=== PATIENT | female | born 1955 | race Caucasian/White ===

== ENCOUNTER → 2018-08-13 | Outpatient (CLI) | payer OTHER ==
--- NOTE | 2018-08-18 08:41 | Pulmonary Function Test ---
DATE OF STUDY: Patient of Dr. [place] and Dr. Emmanuel Severe obstructive pulmonary disease. Forced vital capacity 2.17, 64% of predicted. FEV1 1.38, 52% of predicted. FEV1/FVC ratio 63%. FEF25/75 34% consistent with moderately severe to severe obstructive pulmonary disease. There is paradoxical decline following inhalation of bronchodilators. Diffusion capacity is reduced 10.75, 45% of predicted. Lung volumes are increased at 8.59 L, 160% of predicted. Leak is suspected. IMPRESSION: Moderately severe to severe obstructive pulmonary disease. Patient does represent increased surgical risk for thoracic surgery. Split function study should be considered prior to lung resection. Arterial blood gases are also recommended. Job#: [id number] [email or web address]
== END ==
LOC: RESP 13:03
PROVIDERS: ATTEND Internal Medicine Pulmonary Disease
DX: J44.9 Chronic obstructive pulmonary disease, unspecified (principal)